=== PATIENT | male | born 1950 | race Caucasian/White ===

== ENCOUNTER 2024-11-11 07:56 | Emergency (ER) | payer OTHER, SELFPAY ==
[2024-11-11 07:57] VITALS: PULSE 73
[2024-11-11 07:58] VITALS: BP 153/89; PULSE 68; RESP 14; TEMP 36.1; O2SAT 98; BMI 25.3
--- NOTE | 2024-11-11 08:30 | RAD_ITS ---
EXAM: XR Chest, 2 Views CLINICAL INDICATION: TECHNIQUE: Frontal and lateral views of the chest. COMPARISON: No relevant prior studies available. FINDINGS: LUNGS AND PLEURAL SPACES: Unremarkable. No consolidation. No pneumothorax. HEART: Unremarkable. No cardiomegaly. MEDIASTINUM: Unremarkable. Normal mediastinal contour. BONES/JOINTS: Cortical irregularity of the right 3rd through 8th ribs could be secondary to remote fracture. Acute fracture can not be entirely excluded. RAD/Chest PA and Lateral IMPRESSION: Cortical irregularity of the right 3rd through 8th ribs could be secondary to r emote fracture. Acute fracture can not be entirely excluded. Reading Location: [facility]
[2024-11-11 08:34] LABS: Absolute Lymphocyte Count 0.25 X10^3/uL (0.83-4.51); Absolute Neutrophil Count 2.3 X10^3/uL (2.0-7.7); Basophil# 0.01 X10^3/uL; Basophil% 0.4 % (0-1); Eosinophil# 0.02 X10^3/uL; Eosinophils% 0.7 % (0-5); Hematocrit 39.8 % (40-54); Hemoglobin 13.7 g/dL (13.0-16.5); Lymphocyte # 0.25 X10^3/ul (0.83-4.51); Lymphocyte % 8.8 % (19-41); Mean Corp Hgb Conc 34.4 g/dL (32-36); Mean Corpuscular Hgb 30.2 pg (27.0-32.0); Mean Corpuscular Volume 87.7 fL (80-94); Mean Platelet Vol. 8.5 fl (6.2-12.0); Monocyte# 0.24 X10^3/uL; Monocyte% 8.4 % (0-10); NRBC Flagged by Analyzer 0 % (0-5); Neutrophil # 2.32 X10^3/uL (2.7-7.7); Neutrophil % 81.3 % (47-70); POSITIVE DIFFERENTIAL YES; Platelet Count 162 K/mm3 (150-450); RBC Distribution Width CV 13.6 % (11.6-14.6); RBC Distribution Width SD 43.8 fl (35.1-43.9); Red Blood Count 4.54 M/mm3 (4.6-6.2); White Blood Count 2.9 K/mm3 (4.4-11.0)
[2024-11-11 08:37] LABS: Differential Indicated SCAN CRITERIA MET
[2024-11-11 08:56] LABS: Anion Gap 4 (5-15); BUN 17 mg/dL (7-18); BUN/Creat Ratio 14.5 RATIO (10-20); Calcium,Total 9.2 mg/dL (8.5-10.1); Chloride 108 mmol/L (98-107); Creatinine, Serum 1.17 mg/dL (0.70-1.30); EST Glomerular Filtration Rate 64 mL/min (>60); Est Glom Filt Rate - Afr Amer 78 mL/min (>60); Estimated Creatinine Clearance 44.98 ml/min; Glucose 115 mg/dL (74-106); Magnesium 2.3 mg/dL (1.6-2.6); Sodium Level 142 mmol/L (136-145); Troponin-I HS (w/2H Reflex) 8 pg/mL (3.0-78.0)
[2024-11-11 09:06] LABS: Differential Comment SCANNED; Platelet Estimate ADEQUATE (ADEQ); Red Cell Morphology NORM C+C NORMAL (NORM C&C)
--- NOTE | 2024-11-11 09:31 | EX.ED.DYSGE1 ---
HPI History of Present Illness Chief Complaint: Palpitations Informant: patient Narrative Narrative: Patient is a 74-year-old male with history of hypothyroidism, BPH and hyperlipidemia presenting with palpitations. Patient states that this morning (he was already awake) he felt his heart was racing. It lasted for an hour and 1/2 to 2 hours. He states he felt jittery in his chest but denies any pain. He states he felt like he could feel his heart which is abnormal for him. He checked his pulse on his home oximeter and his heart rate went up as high as 117 down to the 90s. He notes that yesterday he fell like maybe he was getting a cold and had some head congestion. He took some vitamin C supplements and rested throughout the day. Denies any recent cough or difficulty breathing. Denies any swelling of his legs. Denies any nausea or vomiting. Notes he had 2 large bowel movements yesterday but denies any diarrhea. Denies any black or blood in his stool. Denies any swelling of his legs or history of DVT/PE. Has no complaints at this time and is asymptomatic. Denies any history of any type of arrhythmia. No other complaints or concerns at this time. [facility] Medical History no medical history Home Medications ?Medication ?Instructions ?Recorded ?Last Taken ?Type atorvastatin 20 mg tablet (Lipitor) 20 mg PO DAILY 11/11/24 Unknown History levothyroxine 88 mcg capsule 88 mcg PO DAILY 11/11/24 Unknown History tamsulosin 0.4 mg capsule (Flomax) 0.4 mg PO DAILY 11/11/24 Unknown History Allergy/AdvReac Type Severity Reaction Status Date / Time No Known Allergies Allergy Verified 11/11/24 07:57 Family History Father Diabetes Surgical History no surgical history Social History Smoking Status: Never smoker ROS ROS ED Constitutional Constitutional ED: Denies chills or fever(s) ENT ENT ED: Reports other Details: mild congestion ; Denies sore throat Cardiovascular Cardiovascular: Reports palpitations and racing heartbeat; Denies chest pain Respiratory/Chest Respiratory/Chest: Denies cough or dyspnea Gastrointestinal Gastrointestinal: Denies abdominal pain, diarrhea, melena, nausea or vomiting Musculoskeletal Musculoskeletal: Denies arthralgias or myalgias Integumentary Denies rash Neurologic Neurologic: Denies weakness Psychiatric Psychiatric: Denies anxiety Hematologic/Lymphatic Hematologic/Lymphatic: Denies easy bleeding or easy bruising EXAM Physical Exam Const Vital Signs: 11/11/24 07:57 11/11/24 07:58 11/11/24 08:12 Temperature 97 F L Temperature Source Temporal Pulse Rate 73 68 Respiratory Rate 14 Blood Pressure 153/89 H Blood Pressure Mean 110 Pulse Ox 98 Oxygen Delivery Method Room Air Room Air 11/11/24 09:57 11/11/24 10:58 Temperature Temperature Source Pulse Rate 64 63 Respiratory Rate 17 20 H Blood Pressure 143/78 H 138/78 H Blood Pressure Mean 99 98 Pulse Ox 98 99 Oxygen Delivery Method Room Air Room Air Positive well nourished and well developed General Appearance ED: well developed and NAD HEENT Reports moist mucous membranes Eyes PERRL Neck supple and no JVD Chest Wall inspection of chest normal Resp normal respiratory effort and clear to auscultation bilaterally Cardio regular rate, regular rhythm and no murmurs GI normal to inspection, nondistended, normoactive bowel sounds and non-tender Extremity normal to inspection General Extremety ED: Negative for edema or tenderness General Extremity: Negative for edema Neuro oriented x3 Sensorium / Orientation: alert Motor Exam: Negative for general weakness Psych mental status grossly normal Skin no rashes or lesions noted and no wounds MDM MDM MDM Narrative Medical decision making narrative: Patient valuated for palpitations. Differential includes ACS, atrial fibrillation, arrhythmia, electrolyte abnormality, thyroid abnormality, symptomatic anemia, pneumonia and viral syndrome. Patient's heart rate in the 60s to 70s here. Mildly hypertensive blood pressure 153/89 but otherwise asymptomatic. Well-appearing. Will obtain delta high-sensitivity troponin given the acute onset, CBC, BMP, magnesium, TSH and D-dimer. Chest x-ray reviewed by myself as well as radiology does not show any acute infiltrate or other acute abnormalities. There is a question from radiology about acute fracture however patient states he had remote multiple rib fractures and pneumothorax and he is not complain of any trauma or pain today. Workup shows a mild leukopenia with a white blood cell count 2.9. Raising a question of possible viral infection given send cold-like symptoms that started yesterday. Cardiac workup normal with no arrhythmia noted. High-sensitivity troponin 1 and then 10. TSH is normal. No significant electrolyte derangement. D-dimer is normal for age-adjusted it (0.61). Patient is well-appearing in the emergency room. Is asymptomatic. Counseled that he could have started a viral illness given his leukopenia but regardless can be discharged home. Given return precautions. Discharged home in stable condition. Patient verbalized agreement understand with this plan. And counseled to follow-up with his primary care doctor for further cardiac monitoring. Given return precautions such as recurrent palpitations, developing chest pain rating to his jaw or arms, feeling he is going to pass out or high fevers. Lab Data Attestation: I reviewed the patient's lab results. Labs: Laboratory Results - last 24 hr 11/11/24 11/11/24 08:20 10:22 WBC 2.9 L RBC 4.54 L Hgb 13.7 Hct 39.8 L MCV 87.7 MCH 30.2 MCHC 34.4 RDW Std Deviation 43.8 RDW Coeff of Pam 13.6 Plt Count 162 MPV 8.5 Immature Gran % (Auto) 0.400 Neut % (Auto) 81.3 H Lymph % (Auto) 8.8 L Kay % (Auto) 8.4 Eos % (Auto) 0.7 Baso % (Auto) 0.4 Absolute Neuts (auto) 2.3 Absolute Lymphs (auto) 0.25 L Nucleated RBC % 0 Differential Comment SCANNED Diff Path Review May foll Platelet Estimate ADEQUATE RBC Morphology NORM C+C D-Dimer Quant (PE/DVT) 0.61 H* Sodium 142 Potassium 4.0 Chloride 108 H Carbon Dioxide 29.0 Anion Gap 4 L BUN 17 Creatinine 1.17 Estim Creat Clear Calc 44.98 Est GFR (MDRD) Af Amer 78 Est GFR (MDRD) Non-Af 64 BUN/Creatinine Ratio 14.5 Glucose 115 H Calcium 9.2 Magnesium 2.3 Troponin I High Sens 8 10 TSH 3.690 Radiography Diagnostic Testing: Clinical Impression(s) from Imaging Studies Chest X-Ray 11/11/24 08:30 IMPRESSION: Cortical irregularity of the right 3rd through 8th ribs could be secondary to remote fracture. Acute fracture can not be entirely excluded. Reading Location: [facility] Rhythm Strip Rhythm Strip: Sinus Rhythm Rate: 68 Ectopy: None EKG Initial EKG: Attestation: I personally reviewed and interpreted this EKG as follows: Interpretation: Sinus Rhythm Comments: Normal sinus rhythm at a rate of 68 bpm with sinus arrhythmia Normal axis Normal intervals Normal ST segments Discharge Plan Triage Chief Complaint: Palpitations ED Provider: Rosalba Delarosa Dx/Rx/DC Orders Clinical Impression: Heart palpitations, Leukopenia Instructions: ED Palpitations Prescriptions: No Action atorvastatin [Lipitor] 20 mg tablet 20 mg PO DAILY levothyroxine 88 mcg capsule 88 mcg PO DAILY tamsulosin [Flomax] 0.4 mg capsule 0.4 mg PO DAILY Primary Care Provider: Eleuterio Rodas Referrals: Eleuterio Rodas MD [Primary Care Provider] - Activity Restrictions/Additional Instructions: Your workup today was largely normal. Your white blood cell count was mildly low which can be indicative of a viral infection. If you develop further cold/flu symptoms please alternate ibuprofen and Tylenol as needed for symptom relief and make sure you are pushing fluids. Please follow-up with your primary care doctor especially if you have further episodes of racing heartbeat. If your heart rate is going above 120, you feel you are going to pass out, you develop chest pain especially pain that radiates to your neck, jaw or arms or your heart rate does not normalize after an hour or 2 please return to the emergency room. Print Language: Guatemalan Disposition Disposition: Home, Self Care
[2024-11-11 09:45] LABS: D-Dimer Quantitative (DVT/PE) 0.61 FEU/ug/m (0.27-0.49)
--- NOTE | 2024-11-11 09:49 | NURSING ---
Dr Delarosa notified of critical d-dimer.
[2024-11-11 09:57] VITALS: BP 143/78; PULSE 64; RESP 17; O2SAT 98
[2024-11-11 10:28] LABS: Reflex Troponin-HS? (from REC) Y
[2024-11-11 10:56] LABS: Troponin-I HS 10 pg/mL (3.0-78.0)
[2024-11-11 10:58] VITALS: BP 138/78; PULSE 63; RESP 20; O2SAT 99
[2024-11-11 11:34] VITALS: BP 132/81; PULSE 65; RESP 20; TEMP 36.1; O2SAT 98
[2024-11-14 16:06] LABS: Pathologist Review Reviewed
== END 2024-11-11 11:38 | disposition home or self-care (01) ==
PROVIDERS: Emergency Provider Emergency Medicine; PCP Family Medicine; Visit Provider Emergency Medicine
DX: R00.2 Palpitations (principal); E78.5 Hyperlipidemia, unspecified; E03.9 Hypothyroidism, unspecified; Z79.890 Hormone replacement therapy; N40.0 Benign prostatic hyperplasia without lower urinary tract symptoms; Z79.899 Other long term (current) drug therapy; D72.819 Decreased white blood cell count, unspecified
CPT/HCPCS: 71046; 80048; 83735; 84443; 84484; 85025; 85379; 93005; 99284; A4216